=== PATIENT | female | born 2000 | race African-American/Black ===

== ENCOUNTER 2024-07-08 08:52 | Outpatient (AMB) | payer MEDICAID, SELFPAY ==
--- NOTE | 2024-07-08 08:57 | A.OFFVIS_ITS ---
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 Patient states she went to urgent care and was placed on a cast, then wore a brace for about 2-3 weeks. Patient reports she has been experiencing sporadic numbness tingling that occurs with certain gestures or when writing. Denies finger locking. She is not taking anything for pain at this time. Denies any prior injuries or surgeries to the right hand. 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 The patient states that she was previously evaluated in the urgent care approximately 2-3 days after her injury, and she was placed in a splint that she was to remain in for 2-3 weeks, but ultimately remained in for approximately 6 weeks. The patient states that at that point, she was evaluated by her primary care provider, who also recommended that she be placed into some kind of splint and to follow-up with us. Today, the patient reports that her pain is primarily localized about the 4th and 5th MCP joints of the right hand, but does move down into the wrist occasionally. Patient also reports intermittent numbness and tingling in bilateral hands that is worse on the right. No other acute complaints or concerns at this time. 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 Neuro: Normal sensation of the tips of all digits of the bilateral hands at this time Vascular: Cap refill brisk Pain: Patient reports tenderness to palpation of the ulnar aspect of the dorsal wrist Patient does report discomfort on the dorsal aspect of the 4th and 5th metacarpals and MCP joints of the right hand while making a closed fist ROM: With encouragement, patient is able to make a closed fist and extend all digits of the right hand fully Skin: No lacerations or abrasions. General: No ecchymosis, erythema, or evidence of infection. Psych: Appears grossly normal Affect normal Attitude cooperative Results Reviewed Results Reviewed: X-rays obtained in the office today and independently reviewed by me, Yazan Diamond PA-C, demonstrate no fracture or acute bony abnormality. Assessment & Plan Assessment & Plan (1) Numbness and tingling in both hands: Code(s): R20.0 - Anesthesia of skin; R20.2 - Paresthesia of skin Category: Medical (2) Stiffness of right hand joint: Code(s): M25.641 - Stiffness of right hand, not elsewhere classified Category: Medical Plan 1. Right hand pain and stiffness Ongoing since February At this time, patient was offered a referral to occupational therapy for range of motion and strengthening of the right hand, as I feel that stiffness from being in a splint for too long is likely what is causing the majority of her symptoms However, the patient informed me that she already has a referral to OT, and this is scheduled to start next week Patient should start OT and be very consistent with exercises in order to get maximum relief for her symptoms Patient is educated that she should start working on range of motion exercises prior to beginning OT Patient understands this and is amenable to this plan 2. Bilateral hand numbness and tingling No EMG and nerve conduction study ordered At this time, patient is referred for EMG and nerve conduction study to assess the health of the nerves of the bilateral upper extremities Patient will follow-up after EMG and nerve conduction study for results review and discussion of further treatment options at that time Patient will follow-up in 4-5 weeks for [id number] check of the right hand, as well as after EMG and nerve conduction study for results review and discussion of further treatment options, sooner with any acute concerns Orders: Orders XR hand RT min 3V Today M79.641 - Pain in right hand NE electromyogram (EMG) Today R20.0 - Anesthesia of skin, R20.2 - Paresthesia of skin NE nerve conduction velocity Today R20.0 - Anesthesia of skin, R20.2 - Paresthesia of skin Coding Level of Care Code New Pt Level 3 (97252) Diagnoses Numbness and tingling in both hands R20.0; R20.2 Stiffness of right hand joint M25.641
[2024-07-08 09:02] VITALS: BMI 49.2
== END 2024-07-08 09:42 | disposition home or self-care (01) ==
LOC: HO.HOS 08:52
PROVIDERS: PCP Nurse Practitioner
DX: R20.0 Anesthesia of skin (principal); R20.2 Paresthesia of skin; M25.641 Stiffness of right hand, not elsewhere classified
CPT/HCPCS: 99203

== ENCOUNTER 2024-07-08 10:33 | Outpatient (REF) | payer MEDICAID, SELFPAY | END 2024-07-08 10:34 | disposition home or self-care (01) | LOC: HO.HOSX 10:33 | DX: M79.641 Pain in right hand (principal); R20.0 Anesthesia of skin; R20.2 Paresthesia of skin; M25.641 Stiffness of right hand, not elsewhere classified | CPT/HCPCS: 73130; 99212 ==

== ENCOUNTER 2024-07-13 08:58 | Outpatient (REF) | payer MEDICAID, SELFPAY ==
--- NOTE | 2024-07-13 09:01 | EMG_ITS ---
Chief complaint: Bilateral hand numbness Reason for referral: Evaluate for Carpal Tunnel Syndrome Referred by: Yazan WEN Procedure done: Bilateral upper extremities NCS Precautions and/or limitations: Tendency to be lightheaded and faint with needles. The limb temperature was monitored continuously and remained between 32-36 degrees C during the performance of the NCS. Nerve Conduction Studies Anti Sensory Summary Table ?Stim Site NR Onset (ms) Norm Onset (ms) Peak (ms) Norm Peak (ms) O-P Amp (?V) Norm O-P Amp Site1 Site2 Delta-0 (ms) Dist (cm) Arjun (m/s) Norm Arjun (m/s) Left Median Anti Sensory (2nd Digit) Wrist ? 2.2 2.8 <3.6 78.3 >10 Wrist 2nd Digit 2.2 14.0 64 Right Median Anti Sensory (2nd Digit) Wrist ? 2.0 2.8 <3.6 79.0 >10 Wrist 2nd Digit 2.0 14.0 70 Left Ulnar Anti Sensory (5th Digit) Wrist ? 2.2 2.9 <3.7 87.3 >15.0 Wrist 5th Digit 2.2 14.0 64 Right Ulnar Anti Sensory (5th Digit) Wrist ? 2.1 2.8 <3.7 39.4 >15.0 Wrist 5th Digit 2.1 14.0 67 Motor Summary Table ?Stim Site NR Onset (ms) Norm Onset (ms) O-P Amp (mV) Norm O-P Amp iAmp (mV) Amp (1st) (%) Site1 Site2 Delta-0 (ms) Dist (cm) Arjun (m/s) Norm Arjun (m/s) Left Median Motor (Abd Poll Brev) Wrist ? 2.9 <3.9 11.3 >4.5 13.3 100.0 Elbow Wrist 3.3 17.5 53 >45 Elbow ? 6.2 10.4 13.1 92.0 Right Median Motor (Abd Poll Brev) Wrist ? 2.7 <3.9 15.3 >4.5 18.9 100.0 Elbow Wrist 3.2 19.5 61 >45 Elbow ? 5.9 15.5 18.5 101.3 Left Ulnar Motor (Abd Dig Minimi) Wrist ? 2.3 <3.0 7.1 >5 9.3 100.0 B Elbow Wrist 2.6 17.0 65 >45 B Elbow ? 4.9 7.3 9.4 102.8 A Elbow B Elbow 1.4 10.0 71 >45 A Elbow ? 6.3 6.4 8.0 90.1 Right Ulnar Motor (Abd Dig Minimi) Wrist ? 2.3 <3.0 9.2 >5 11.4 100.0 B Elbow Wrist 2.9 17.5 60 >45 B Elbow ? 5.2 8.5 10.5 92.4 A Elbow B Elbow 1.2 10.0 83 >45 A Elbow ? 6.4 7.2 9.0 78.3 Comparison Summary Table ?Stim Site NR Peak (ms) Norm Peak (ms) P-T Amp (?V) Site1 Site2 Delta-P (ms) Norm Delta (ms) Right Median/Radial Dig I Comparison (Digit 1 - 10cm) Median ? 2.1 <2.9 163.5 Median Radial 0.0 Radial ? 2.1 <2.8 55.7 FINDINGS: All motor and sensory nerves tested showed normal latencies, amplitudes and conduction velocities. Patient has tendency to be lightheaded and faint with needles. Needle EMG deferred. IMPRESSION: 1. This is a normal nerve conduction study. 2. There is no electrodiagnostic evidence for median neuropathy or ulnar neuropathy. Thank you for your kind referral. Verónica George MD, BARRY Board Certified, [place] [employer] and [employer] (ABPMR) Board Certified, [place] Board [employer] Electrodiagnostic [employer] (ABEM) CODIN 5 [phone] MTDD
== END 2024-07-13 08:59 | disposition home or self-care (01) ==
LOC: HO.NEURO 08:58
PROVIDERS: PCP Nurse Practitioner
DX: R20.0 Anesthesia of skin (principal); R20.2 Paresthesia of skin
CPT/HCPCS: 95911

== ENCOUNTER → 2024-07-13 09:01 | Outpatient (BNV) | payer MEDICAID, SELFPAY | PROVIDERS: PCP Nurse Practitioner; Visit Provider Physical Medicine & Rehabilitation | DX: R20.0 Anesthesia of skin (principal); R20.2 Paresthesia of skin | CPT/HCPCS: 95911 ==

== ENCOUNTER 2024-08-09 08:16 | Outpatient (REF) | payer MEDICAID, SELFPAY | END 2024-08-09 08:17 | disposition home or self-care (01) | LOC: HO.HOSX 08:16 | DX: M79.641 Pain in right hand (principal); R20.0 Anesthesia of skin; R20.2 Paresthesia of skin; M25.641 Stiffness of right hand, not elsewhere classified | CPT/HCPCS: 73130; 99212 ==

== ENCOUNTER 2024-08-09 09:12 | Outpatient (AMB) | payer MEDICAID, SELFPAY ==
--- NOTE | 2024-08-09 09:18 | MHC.OFFVIS ---
Vital Signs 08/09/24 09:19 Height 5 ft Weight 252 lb BMI 49.2 Handedness Right Intake Visit Reasons: OV - right hand pain Intake Note: Charla is a 24 year old right hand dominant female who presents today for a follow up of her right hand pain S/P punching something and an EMG review of her bilateral hands. EMG done on 07/13/2024. Patient reports the ventral aspect of her right hand still feels sore. She expresses mild numbness and tingling she says comes in waves but it is not as bad as when she first injured her had. Reports feeling tightness in all of her fingers of the right hand. Allergies pineapple Allergy (Severe, Verified 08/09/24 09:21) Hives seafood Allergy (Severe, Verified 08/09/24 09:21) Anaphylaxis shellfish derived Allergy (Severe, Verified 08/09/24 09:21) Anaphylaxis HPI HPI OV - right hand pain: Details: Patient is a 24-year-old female who presents for follow-up evaluation of right hand pain. The patient states that she is feeling better than she was at previous evaluation, and then her range of motion has improved significantly, but she does report that she is still experiencing significant discomfort in the 2nd through 5th MCP joints of the right hand. Patient does state that she has not been able to start OT, as she was rescheduled for next week. No other acute complaints or concerns at this time. 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 Neuro: Normal sensation of the tips of all digits of the bilateral hands at this time Vascular: Cap refill brisk Pain: Patient reports tenderness to palpation of the ulnar aspect of the dorsal wrist Patient does report mild discomfort on the dorsal aspect of the 4th and 5th metacarpals and MCP joints of the right hand while making a closed fist ROM: patient is able to make a closed fist and extend all digits of the right hand fully and without difficulty Skin: No lacerations or abrasions. General: No ecchymosis, erythema, or evidence of infection. Psych: Appears grossly normal Affect normal Attitude cooperative Results Reviewed Results Reviewed: X-rays obtained in the office today and independently reviewed by me, Yazan Diamond PA-C, demonstrate no fracture or acute bony abnormality of the right hand. Assessment & Plan Assessment & Plan (1) Numbness and tingling in both hands: Code(s): R20.0 - Anesthesia of skin; R20.2 - Paresthesia of skin Category: Medical (2) Stiffness of right hand joint: Code(s): M25.641 - Stiffness of right hand, not elsewhere classified Category: Medical Plan 1. Right hand pain and stiffness Ongoing since February At this time, patient was offered a referral to occupational therapy for range of motion and strengthening of the right hand, as I feel that stiffness from being in a splint for too long is likely what is causing the majority of her symptoms However, the patient informed me that she already has a referral to OT, and this is scheduled to start next week Patient should start OT and be very consistent with exercises in order to get maximum relief for her symptoms Patient is educated that she should start working on range of motion exercises prior to beginning OT Patient understands this and is amenable to this plan 2. Bilateral hand numbness and tingling Negative EMG Patient denies any numbness or tingling at this time Patient is advised that if she does continue to experience numbness and tingling in 6 months, we can repeat the EMG and nerve conduction study at that time Patient was amenable to this plan Patient will follow-up in 6 weeks for [id number] check, sooner with any acute concerns Orders: Orders XR hand RT min 3V Today M79.641 - Pain in right hand Coding Level of Care Code Est Pt Level 3 (86336) Diagnoses Numbness and tingling in both hands R20.0; R20.2 Stiffness of right hand joint M25.641
[2024-08-09 09:19] VITALS: BMI 49.2
== END 2024-08-09 09:34 | disposition home or self-care (01) ==
PROVIDERS: PCP Nurse Practitioner
DX: R20.0 Anesthesia of skin (principal); R20.2 Paresthesia of skin; M25.641 Stiffness of right hand, not elsewhere classified
CPT/HCPCS: 99213

== ENCOUNTER 2024-09-20 08:57 | Outpatient (AMB) | payer MEDICAID, SELFPAY ==
--- NOTE | 2024-09-20 08:59 | A.OFFVIS_ITS ---
Vital Signs 09/20/24 09:04 Height 5 ft Weight 252 lb BMI 49.2 Intake Visit Reasons: OV - right hand pain-ROM check Intake Note: Charla is a 24 year old right hand dominant female who presents today for a follow up of her right hand pain S/P punching something DOI: February 2024. Patient presents today for a ROM check. Patient reports she continues to struggle with ROM. Continues to have pain and swelling at the dorsal aspect of her hand fingers and wrist. Allergies pineapple Allergy (Severe, Verified 09/20/24 09:06) Hives seafood Allergy (Severe, Verified 09/20/24 09:06) Anaphylaxis shellfish derived Allergy (Severe, Verified 09/20/24 09:06) Anaphylaxis HPI HPI OV - right hand pain-ROM check: Details: Charla is a 24 year old right hand dominant female who presents today for a follow up of her right hand pain S/P punching something DOI: February 2024. Patient presents today for a ROM check. Patient reports she continues to struggle with ROM. Patient does report that her pain has improved but she is still experiencing intermittent discomfort in the right hand, particularly ulnar aspect of the wrist. Continues to have pain and swelling at the dorsal aspect of her hand fingers and wrist. 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 Neuro: Normal sensation of the tips of all digits of the bilateral hands at this time Vascular: Cap refill brisk Pain: Patient reports tenderness to palpation of the ulnar aspect of the dorsal wrist Patient does report mild discomfort on the dorsal aspect of the 4th and 5th metacarpals and MCP joints of the right hand while making a closed fist ROM: patient is able to make a closed fist and extend all digits of the right hand fully and without difficulty Skin: No lacerations or abrasions. General: No ecchymosis, erythema, or evidence of infection. Psych: Appears grossly normal Affect normal Attitude cooperative Assessment & Plan Assessment & Plan (1) Numbness and tingling in both hands: Code(s): R20.0 - Anesthesia of skin; R20.2 - Paresthesia of skin Category: Medical (2) Stiffness of right hand joint: Code(s): M25.641 - Stiffness of right hand, not elsewhere classified Category: Medical Plan 1. Right hand pain and stiffness Ongoing since February Patient should continue with occupational therapy for range of motion and strengthening of the right hand and wrist Patient should start OT and be very consistent with exercises in order to get maximum relief for her symptoms Patient is educated that she should start working on range of motion exercises prior to beginning OT Patient understands this and is amenable to this plan 2. Bilateral hand numbness and tingling Negative EMG Patient denies any numbness or tingling at this time Patient is advised that if she does continue to experience numbness and tingling in 6 months, we can repeat the EMG and nerve conduction study at that time Patient was amenable to this plan Follow-up As needed with any acute concerns Coding Level of Care Code Est Pt Level 3 (94733) Diagnoses Numbness and tingling in both hands R20.0; R20.2 Stiffness of right hand joint M25.641
[2024-09-20 09:04] VITALS: BMI 49.2
== END 2024-09-20 09:19 | disposition home or self-care (01) ==
PROVIDERS: PCP Nurse Practitioner
DX: R20.0 Anesthesia of skin (principal); R20.2 Paresthesia of skin; M25.641 Stiffness of right hand, not elsewhere classified
CPT/HCPCS: 99213

== ENCOUNTER → 2024-09-20 08:57 | Outpatient (BNVA) | payer MEDICAID, SELFPAY | PROVIDERS: PCP Nurse Practitioner | DX: M25.641 Stiffness of right hand, not elsewhere classified (principal); R20.0 Anesthesia of skin; R20.2 Paresthesia of skin | CPT/HCPCS: 99212 ==